=== PATIENT | male | born 2000 | race Caucasian/White ===

== ENCOUNTER 2020-09-29 19:42 | Emergency (ER) | payer MEDICAID ==
[2020-09-29 19:51] VITALS: BP 136/79; PULSE 78
--- NOTE | 2020-09-29 19:57 | EDM.PDOC ---
ED HPI GENERAL MEDICAL PROBLEM - General Chief Complaint: Lower Extremity Injury/Pain Stated Complaint: SMASHED FOOT Time Seen by Provider: 09/29/20 19:45 Source of Information: Reports: Patient History Limitations: Reports: No Limitations - History of Present Illness INITIAL COMMENTS - FREE TEXT/NARRATIVE: Patient was in his usual state of health unloading 1/5 wheel trailer onto the back of a pickup. The trailer hitch was on the fifth wheel but not locked in. The hitch came off of the fifth wheel smashing down on the patient's left great toe pinning it between the trailer hitch and the pickup truck bed. This caused significant damage to the nail and distal toe. Right Toe-Hailux Pain Score (Numeric/FACES): 5 - Related Data Allergies Allergy/AdvReac Type Severity Reaction Status Date / Time Cephalosporins Allergy Anaphylactic Verified 09/29/20 21:44 Shock clindamycin Allergy Swelling Verified 09/29/20 19:57 Sulfa (Sulfonamide Allergy Swelling Verified 03/13/15 09:29 Antibiotics) Home Meds: Home Meds Citalopram Hydrobromide [Celexa] 1 tab PO DAILY 09/29/20 [History] busPIRone [Buspar] 10 mg PO DAILY 09/29/20 [History] Past Medical History - Past Health History Medical/Surgical History: Denies Medical/Surgical History Other Musculoskeletal History: spiral fracture of fibula Other Dermatologic History: impentigo Review of Systems - Review of Systems Review Of Systems: See Below Constitutional: Reports: No Symptoms Musculoskeletal: Reports: Foot Pain (Crush injury to the left great toe) Skin: Reports: Wound Neurological: Reports: Numbness (Numbness in the distal left great toe) ED EXAM, GENERAL - Physical Exam Exam: See Below Exam Limited By: No Limitations General Appearance: Alert, Mild Distress Extremities: Other (There is an open fracture of the medial distal great toe with a laceration measuring 8.2 cm and goes into the nailbed. The nail bed is disrupted with the toenail pulled up.) Neurological: Sensory/Motor Deficit (Numbness of the distal left great toe) Skin Exam: Wound/Incision (Open wounds on the medial left great toe with disruption of the nailbed.) ED TRAUMA EXTREMITY PROCEDURES - Laceration/Wound Repair Left Medial Toe - Great Lac/Wound Length In cm: 8.2 Appearance: Subcutaneous, Mildly Contaminated Distal NVT: No Tendon Injury, Other (The distal toe is numb secondary to the injury) Anesthetic Type: Digital Local Anesthesia - Lidocaine (Xylocaine): Other (Bupivacaine 0.5%) Local Anesthetic Volume: Other (7 cc) Skin Prep: Providone-Iodine (Betadine) (The wound was aggressively washed out wi th saline and Betadine as requested by orthopedics.) Exploration/Debridement/Repair: Wound Explored, In a Bloodless Field, Explored to Base, Moderate Debridement, Moderately Undermined, Other (70% of the nail was removed exposing the multiple lacerations in the nailbed. A large section of soft tissue of the nailbed is absent with exposed bone.) Closed With: Sutures Suture Size: 4-0 # of Sutures: 13 Suture Type: Nylon, Interrupted Tetanus Status Addressed: Yes Complications: No - Splinting Left Lower Extremity Splint Site: Left foot and great toe Splint Material: Fiberglass Splint Design: Posterior Applied & Form Fitted By: Provider Provider Post-Splint Application NV Check: NV Status Normal (The distal toe remains numb) Complications: No Course - Vital Signs Last Recorded V/S: Last Vital Signs Temp 38 C 09/29/20 19:55 Pulse 78 09/29/20 19:55 Resp 16 09/29/20 19:55 BP 136/79 09/29/20 19:55 Pulse Ox 99 09/29/20 19:55 - Orders/Labs/Meds Orders: Active Orders 24 hr Category Date Time Status Toes Great Toe Lt TA [CR] Stat Exams 09/29/20 19:46 Taken Meds: Medications Discontinued Medications Generic Name Dose Route Start Last Admin Trade Name Mary Beth PRN Reason Stop Dose Admin Bacitracin 1 dose 09/29/20 22:36 09/29/20 22:59 Bacitracin Oint 1 Gm U/D Packet TOP 09/29/20 22:37 1 dose ONETIME ONE Administration Bupivacaine HCl 10 ml 09/29/20 19:58 09/29/20 20:19 Bupivacaine 0.5% 10 Ml Sdv INJECT 09/29/20 19:59 10 ml ONETIME ONE Administration Vancomycin HCl 1.5 gm/ Sodium 250 mls @ 150 mls/hr 09/29/20 21:55 09/29/20 22:51 Chloride IV 09/29/20 23:34 150 mls/hr ONETIME STA Administration Sterile Water Confirm 09/29/20 22:32 Sterile Water For Injection Administered 09/29/20 22:33 Dose 20 mls @ as directed .ROUTE .STK-MED ONE Povidone Iodine Confirm 09/29/20 22:01 09/29/20 23:18 Povidone-Iodine 10% Soln 118.25 Ml Bottle Administered 09/29/20 22:02 Not Given Dose 1 ml .ROUTE .STK-MED ONE Povidone Iodine 5 ml 09/29/20 22:36 09/29/20 22:35 Povidone-Iodine 10% Soln 118.25 Ml Bottle TOP 09/29/20 22:37 5 ml ONETIME STA Administration - Re-Assessments/Exams Free Text/Narrative Re-Assessment/Exam: 09/29/20 22:53 I discussed the case with Elyse from orthopedic surgery at [place]. She discussed the case with Dr. Graham from podiatry. The recommendation was to aggressively wash the wound out with Betadine and saline and close the lacerations. I will need to remove the nail to expose the deficit in the nailbed. A digital block was performed using bupivacaine 0.5% requiring 7 cc. I done instilled the remainder into the area of the nailbed, nail matrix, and the length of the laceration. The area was aggressively washed out with Betadine and saline as requested. In addition, the patient has been given vancomycin 1.5 g IV. The nail was removed down to the base leaving approximately 3 mm of the nail in the matrix and over the proximal nail bed. Unfortunately there is too large of a deficit of the soft tissue of the nailbed to do a complete repair, however, I was able to tack down both corners to bring the distal soft tissue back in alignment with the toe. The wound of the medial toe was then closed using 4-0 Ethilon requiring 13 simple interrupted sutures. The wound was then covered with a light coating of bacitracin and an [employer] dressing. Over that Curlex was applied to secured in place. A splint was then applied with significant cotton padding involving the foot and ankle. We did use 5 inch Ortho-Glass for posterior support extending beyond the toe. Over this an Portillo wrap was used to secure it in place. The patient remained neurovascularly intact with the exception of the distal toe which is numb. The patient's tetanus status is up-to-date with his most recent being in 2019. We will put the patient on Levaquin 500 mg daily for the next 7 days. The patient should follow-up with Dr. Graham from podiatry in the [facility] on Thursday. Departure - Departure Time of Disposition: 00:36 Disposition: Home, Self-Care 01 Clinical Impression: Open fracture of left great toe Qualifiers: Encounter type: initial encounter Phalanx: distal Fracture alignment: displaced Qualified Code(s): S92.422B - Displaced fracture of distal phalanx of left great toe, initial encounter for open fracture Nailbed laceration, toe Qualifiers: Encounter type: initial encounter Qualified Code(s): S91.219A - Laceration without foreign body of unspecified toe(s) with damage to nail, initial encounter Laceration of great toe with damage to nail Qualifiers: Encounter type: initial encounter Foreign body presence: without foreign body Laterality: left Qualified Code(s): S91.212A - Laceration without foreign body of left great toe with damage to nail, initial encounter - Discharge Information Instructions: Toe Fracture, [id number], Laceration Care, Adult, [id number], Nail Bed Laceration Referrals: PCP,None [Primary Care Provider] - Forms: ED Department Discharge Care Plan Goals: Keep the foot elevated and remain nonweightbearing on the left foot. Use crutches to ambulate. Keep the dressing and splint clean and dry. I am sending you home with prescriptions for hydrocodone for pain control and Levaquin for antibiotics. They want to see you in the [facility] clinic on Thursday with Dr. Ozuna from podiatry for further evaluation. I recommend nothing to eat or drink after midnight on Thursday. Return to the ED should you develop significant increase in pain, fever or chills, or the dressing becomes saturated. Sepsis Event Note (ED) - Focused Exam Vital Signs: Vital Signs Temp Pulse Resp BP Pulse Ox 09/29/20 19:55 38 C 78 16 136/79 99 09/29/20 19:47 38 C 78 16 136/79 99 - Problem List & Annotations (1) Laceration of great toe with damage to nail SNOMED Code(s): 556732765, 535328674 Code(s): S91.213A - LACERATION W/O FB OF UNSP GREAT TOE W DAMAGE TO NAIL, INIT Status: Acute Priority: High Current Visit: Yes Qualifiers: Encounter type: initial encounter Foreign body presence: without foreign body Laterality: left Qualified Code(s): S91.212A - Laceration without foreign body of left great toe with damage to nail, initial encounter (2) Nailbed laceration, toe SNOMED Code(s): 475402918 Code(s): S91.219A - LACERATION W/O FB OF UNSP TOE(S) W DAMAGE TO NAIL, INIT Status: Acute Priority: High Current Visit: Yes Qualifiers: Encounter type: initial encounter Qualified Code(s): S91.219A - Laceration without foreign body of unspecified toe(s) with damage to nail, initial encounter (3) Open fracture of left great toe SNOMED Code(s): 437289268, 71860217935298703 Code(s): S92.402B - DISPLACED UNSP FRACTURE OF LEFT GREAT TOE, INIT FOR OPN FX Status: Acute Priority: High Current Visit: Yes Qualifiers: Encounter type: initial encounter Phalanx: distal Fracture alignment: displaced Qualified Code(s): S92.422B - Displaced fracture of distal phalanx of left great toe, initial encounter for open fracture - Problem List Review Problem List Initiated/Reviewed/Updated: Yes - My Orders Last 24 Hours: My Active Orders 09/29/20 19:46 Toes Great Toe Lt TA [CR] Stat - Assessment/Plan Last 24 Hours: My Active Orders 09/29/20 19:46 Toes Great Toe Lt TA [CR] Stat
[2020-09-29] MEDS ORDERED: Bupivacaine 0.5% 10 ML SDV INJECT ONE (19:58)
[2020-09-29] MEDS ORDERED: Povidone-Iodine 10% Soln 118.25 ML Bottle ONE (22:01)
[2020-09-29] MEDS ORDERED: Water For Injection, Sterile 20 ML ONE (22:32)
[2020-09-29] MEDS ORDERED: Bacitracin Oint 1 GM U/D Packet TOP ONE (22:36)
[2020-09-29] MEDS ORDERED: Povidone-Iodine 10% Soln 118.25 ML Bottle TOP STA (22:36)
--- NOTE | 2020-10-01 11:02 | CR ---
Toes Great Toe Lt TA CLINICAL HISTORY: Crush injury FINDINGS: There is a comminuted tuft fracture of the first distal phalanx. There is irregularity along the medial articular margin of the distal phalanx. This may represent a spur which is fractured. This may represent a secondary ossification center There is soft tissue disruption in the lateral nailbed. No foreign body seen. IMPRESSION: Comminuted tuft fracture Question of a fracture on the medial base of the distal phalanx versus secondary ossification center
== END 2020-09-30 00:56 | disposition home or self-care (01) ==
LOC: JP.ED 19:42
DX: S92.422B Displaced fracture of distal phalanx of left great toe, initial encounter for open fracture (principal); Z88.2 Allergy status to sulfonamides; Z88.1 Allergy status to other antibiotic agents; W23.0XXA Caught, crushed, jammed, or pinched between moving objects, initial encounter
CPT/HCPCS: 12004; 29515; 73660; 96365; 96366; 99283; J3370; J3490; J7050